=== PATIENT | male | born 1960 | race Caucasian/White ===

== ENCOUNTER → 2020-06-21 08:10 | Outpatient (CLI) | payer OTHER, SELFPAY ==
[2020-06-21 10:02] LABS: Alanine Aminotransferase 33 IU/L (<50); Albumin 4.5 g/dL (3.5-5.0); Albumin Globulin Ratio 1.5 (1.0-2.8); Alkaline Phosphatase 130 U/L (38-126); Aspartate Aminotransferase 33 IU/L (17-59); BUN Creatinine Ratio 7.3 (6-22); Bilirubin Total 1.2 mg/dL (0.2-1.3); Blood Urea Nitrogen 8 mg/dL (9-20); Calcium 9.8 mg/dL (8.4-10.2); Carbon Dioxide 27 mmol/L (22-32); Chloride 104 mmol/L (98-107); Cholesterol 198 mg/dL (140-199); Estimated Glomerular Filt Rate > 60.0 mL/min (>60); Globulin 3.1 g/dL (1.7-4.1); Glucose 109 mg/dL (70-100); HDL Cholesterol 52 mg/dL (40-60); HEMOLYSIS < 15 (0-50); LDL Cholesterol Calculated 89 mg/dL (<100); Potassium 4.6 mmol/L (3.4-5.1); Sodium 139 mmol/L (137-145); Total Protein 7.6 g/dL (6.3-8.2); Triglycerides 287 mg/dL (35-150)
== END ==
PROVIDERS: PCP Internal Medicine; Referring Provider Internal Medicine; Visit Provider Internal Medicine
DX: Z12.5 Encounter for screening for malignant neoplasm of prostate (principal); E78.2 Mixed hyperlipidemia; I10 Essential (primary) hypertension
CPT/HCPCS: 36415; 80053; 80061; G0103

== ENCOUNTER → 2021-03-17 13:18 | Outpatient (CLI) | payer OTHER, SELFPAY ==
[2021-03-17 14:01] LABS: COVID19 -Nasal RAPID Negative (Negative)
== END ==
PROVIDERS: PCP Internal Medicine; Visit Provider Surgery
DX: Z01.812 Encounter for preprocedural laboratory examination (principal); Z20.822 Contact with and (suspected) exposure to COVID-19
CPT/HCPCS: 87635; C9803

== ENCOUNTER 2021-03-18 10:38 | Day surgery (SDC) | payer OTHER, SELFPAY ==
[2021-03-13 07:32] VITALS: BMI 34.4
[2021-03-18] VITALS (22 sets, daily range): BP systolic 95–174; BP diastolic 57–94; PULSE 78–109; RESP 12–18; TEMP 36.5–37.5; O2SAT 91–97; BMI 33.6
--- NOTE | 2021-03-18 | PATH_ITS ---
[facility] Accession Number: [id number] . 01 Material submitted: . hernia - VENTRAL HERNIA SAC . 02 Diagnosis: Ventral Hernia Sac, Biopsy: Mature adipose tissue. Negative for atypia or malignancy. [facility] 03/24/2021 1150 Local . 02 Electronically signed: . Francia Martínez MD, Pathologist NPI- [id number] . 01 Gross description: . The specimen is received in formalin, labeled ventral hernia sac and consists of a 36.0 x 20.5 x 5.5 cm powell-yellow fragment of adipose tissue, which is sectioned to reveal powell-yellow lobulated cut surfaces. No masses or lesions are identified. Meteorology Teacher sections are submitted in cassettes A1-A3. (EA:[id number]) /V 03/20/2021 1423 Local . 02 Pathologist provided ICD-10: K43.9 . 02 CPT . 882702 Performed at: 01 [facility] [address] Formerly named [facility], [place], [place] [id number] MD Paco Douglass MD Phone: [phone] Performed at: 02 [facility] [address] [place], [place] [id number] MD Francia Martínez MD Phone: [phone]
[2021-03-18] MEDS: LACTATED RINGERS 1,000 ML 100 ML IV ×3 (11:00→14:46)
--- NOTE | 2021-03-18 11:52 | PM.PREOP ---
Pre-operative Note Interval Note History & Physical reviewed/Exam performed by Physician: Yes Changes to H&P: No
[2021-03-18] MEDS: CEFAZOLIN 2 GM/100 ML FROZ.PIGGY IV (12:10)
--- NOTE | 2021-03-18 12:37 | SUR.OPER ---
Supine on padded OR bed, head on pillow, arms secured on padded arm boards at <90 degrees abduction, legs uncrossed with pillow under knees, safety belt at thigh, tape over blanket over lower legs, gel pad under heels.
[2021-03-18] MEDS: BUPIVACAINE 0.25% (PF) VIAL 30 ML INJ (12:54)
[2021-03-18] MEDS: BUPIVACAINE LIPOSOME 266 MG/20 ML VIAL INJ (12:55)
--- NOTE | 2021-03-18 14:40 | PM.OP.1 ---
Operative Date/Time/Diagnoses Date of procedure: 03/18/21 Time of procedure: 14:41 Pre-op diagnosis: Ventral hernia Post-op diagnosis: same Procedure & Clinicians Procedure: Open repair of ventral hernia with mesh Same procedure as scheduled: Yes Indications: Symptomatic ventral hernia Surgeon: Gurwinder Buckley Click Yes if Unassisted: Yes Anesthesia Type: General Operative Notes Findings: Ventral hernia superior to the umbilicus 4 cm fascial defect containing incarcerated omentum. Specimen(s): other (Hernia sac) Estimated Blood Loss (mL): 500 Procedure in detail: Patient was brought to the operating room placed supine on the table. Bilateral lower extremity compression devices were applied. He was intubated with an endotracheal tube. He received Ancef prior to skin incision. He was prepped and draped in sterile fashion. Time-out was performed. It upper midline incision through the skin. The hernia was palpable just below the skin. Skin flaps were raised on each side in order to fully expose the hernia. The hernia sac was opened carefully. Within the hernia there was incarcerated omentum as well as viable small bowel content. I was unable to reduce the hernia at this point and so extended the fascial defect above and below in order to release the hernia. The omentum was divided using the electric cautery. There was persistent bleeding from the omentum and I switched to the LigaSure to divide the remainder of it. The estimated blood loss was approximately 400 mL. The abdomen was irrigated with several liters of sterile saline and hemostasis was observed.The fascial edges were freshed, skin flaps were extended laterally to expose the fascia. The fascia closed without tension using Ethibond suture in interupted figure of 8 fashion. A 10x 15 cm macroporous mesh was secured overlaying the fascia using ethibond. The subcutaneous tissue was reapproximated using vicryl. The skin was especially thinned out so it was trimed back and then closed in running faschion using 4-0 Monocryl. A drain was placed over the fascia closure exiting through the left side of the abdomen. Skin sealed with dermabond and steri strips. Emerged from anesthesia transfered to recovery room in stable condition. Complications: none Post-operative Condition: stable Disposition: observation
[2021-03-18] MEDS: ONDANSETRON 4 MG/2 ML INJ IV (14:41)
[2021-03-18] MEDS: ACETAMINOPHEN 325 MG TABLET 650 MG PO (18:57)
[2021-03-18] MEDS: IBUPROFEN 600 MG TABLET PO (18:57)
--- NOTE | 2021-03-18 20:57 | PC.NURSE ---
Pt arrived to room ay 1545, awake. Has denied discomfort this evening. IVF of LR @ 100cc/hr infusing into right arm.via pump w/o incidence. Abdominal binder in place over surgical dsg CDI. Pt assisted to BR w/o incidence. Miguel drain intact/patent. Call light w/in reach, pt calls appropriately for needs. Continue w/plan of care.
[2021-03-19] VITALS: BP 128/75; PULSE 108; RESP 16; TEMP 36.3; O2SAT 95
[2021-03-19 00:15] VITALS: O2SAT 95
[2021-03-19] MEDS: ACETAMINOPHEN 325 MG TABLET 650 MG PO ×2 (00:17→06:13)
[2021-03-19] MEDS: IBUPROFEN 600 MG TABLET PO ×2 (00:17→06:13)
[2021-03-19] MEDS: LACTATED RINGERS 1,000 ML 100 ML IV (01:10)
[2021-03-19 03:52] VITALS: BP 138/78; PULSE 86; RESP 16; TEMP 36.7; O2SAT 93
[2021-03-19 04:00] VITALS: O2SAT 93
[2021-03-19 08:00] VITALS: BP 148/78; PULSE 87; RESP 14; TEMP 36.1; O2SAT 94
[2021-03-19] MEDS: lisinopriL 10 MG TABLET PO (08:22)
[2021-03-19] MEDS: ATORVASTATIN 20 MG TABLET PO (08:22)
[2021-03-19] MEDS: AMLODIPINE 5 MG TABLET PO (08:22)
--- NOTE | 2021-03-19 09:52 | PC.NURSE ---
Patients dressing is cdi, with abdominal binder on. He denies pain and is up ambulating now. Patient is going to be discharged to home with RONALD drain. Ride will be here around 1130 and he has been heplocked.
--- NOTE | 2021-03-19 10:42 | CM.DANOTE ---
DCP; Case received, EMR reviewed and met with patient. Introduced self and role. Was able to obtain information from patient regarding his baseline activity status prior to hospitalization. DCP assessment completed with information currently available. Patient is a 60 year old male who admitted yesterday morning to the care of the surgical team. PCP: Dr. Green. Payer: confirmed: Fito GARCIA. Patient came to the hospital via private vehicle for a planned surgical procedure He had open repair of ventral hernia with mesh. Met with patient in his room. He was up in his chair, alert and oriented, pleasant. He resides here in [place] alone, and is employed at [employer]. He is independent at his baseline. P: Patient is being discharged home today with no needs. Family or friend will pick him up. Marce Nickerson RN/Metal Numerical Tool Programmer
== END 2021-03-19 10:49 | disposition home or self-care (01) ==
LOC: OR 10:42 → AC 15:52
PROVIDERS: PCP Internal Medicine; Referring Provider Surgery; Visit Provider Surgery
PROC: (CPT 49561; principal; 2021-03-18 11:45)
DX: K43.9 Ventral hernia without obstruction or gangrene (principal); E66.9 Obesity, unspecified; I10 Essential (primary) hypertension; E78.2 Mixed hyperlipidemia
CPT/HCPCS: 49561; 49568; C1781; C9290; J0690; J1100; J2250; J2405; J2704; J3010

== ENCOUNTER → 2023-01-13 07:27 | Outpatient (CLI) | payer OTHER, SELFPAY ==
[2021-03-18 16:14] VITALS: BMI 33.6
[2023-01-13 08:20] LABS: Alanine Aminotransferase 26 IU/L (<50); Albumin 4.5 g/dL (3.5-5.0); Albumin Globulin Ratio 1.4 (1.0-2.8); Alkaline Phosphatase 92 U/L (38-126); Aspartate Aminotransferase 29 IU/L (17-59); BUN Creatinine Ratio 23.6 (6-22); Bilirubin Total 0.9 mg/dL (0.2-1.3); Blood Urea Nitrogen 25 mg/dL (9-20); Calcium 9.3 mg/dL (8.4-10.2); Carbon Dioxide 30 mmol/L (22-32); Chloride 100 mmol/L (98-107); Cholesterol 203 mg/dL (140-199); Estimated Glomerular Filt Rate > 60 mL/min (>60); Globulin 3.3 g/dL (1.7-4.1); Glucose 96 mg/dL (80-110); HDL Cholesterol 50 mg/dL (40-60); HEMOLYSIS < 15 (0-50); LDL Cholesterol Calculated 120 mg/dL (<100); Potassium 4.5 mmol/L (3.4-5.1); Sodium 139 mmol/L (137-145); Total Protein 7.8 g/dL (6.3-8.2); Triglycerides 167 mg/dL (35-150)
[2023-01-13 08:52] LABS: Prostate Specific Antigen Scrn 1.23 ng/mL (0.1-4.0)
== END ==
PROVIDERS: PCP Internal Medicine; Referring Provider Internal Medicine; Visit Provider Internal Medicine
DX: E78.2 Mixed hyperlipidemia (principal); I10 Essential (primary) hypertension; Z12.5 Encounter for screening for malignant neoplasm of prostate
CPT/HCPCS: 36415; 80053; 80061; G0103

== ENCOUNTER 2023-04-22 08:37 | Day surgery (SDC) | payer OTHER, SELFPAY ==
[2021-03-18 16:14] VITALS: BMI 33.6
--- NOTE | 2023-04-22 | PATH_ITS ---
[facility] Accession Number: [id number] No. of containers..01 Tissue . 01 Material submitted: . colon - TRANSVERSE COLON POLYPS . 01 Diagnosis: Transverse Colon Polyps: Tubular adenomas. [facility] 04/29/2023 1330 Local . 01 Electronically signed: . Marco Nolasco MD, PhD, Pathologist NPI- [id number] . 01 Gross description: . TRANSVERSE COLON POLYPS: Received in formalin are 3 fragment(s) of powell, soft tissue measuring 0.6 x 0.5 x 0.2 cm to 1.0 x 0.4 x 0.4 cm submitted entirely in 1 cassette(s) /ELENO 04/28/2023 0056 Local . 01 Pathologist provided ICD-10: D12.3 . 01 CPT . 285779 Specimen Comment: A courtesy copy of this report has been sent to [phone] Performed at: 01 [facility] [address] [place] [address], [place], [place] [id number] MD Paco Douglass MD Phone: [phone]
[2023-04-22] MEDS: LACTATED RINGERS 1,000 ML 42 ML IV (08:54)
[2023-04-22 08:55] VITALS: BP 121/68; PULSE 60; RESP 16; TEMP 36.3; O2SAT 99; BMI 28.5
--- NOTE | 2023-04-22 09:45 | P.HP_ITS ---
History of Present Illness History of Present Illness Date Patient Seen: 04/22/23 Time Patient Seen: 09:45 Chief complaint: SDC Narrative: Cedric is a 62-year-old man who is here for a colonoscopy. He has never had 1 before. No family history of colon cancer. [facility] Medical History (Updated 04/22/23 @ 09:46 by Taiwo Mccullough MD) Anxiety (~2014) Essential hypertension (06/23/16) Family history of premature coronary artery disease (06/23/16) Fractures Gastroesophageal reflux disease without esophagitis (06/23/16) HTN (hypertension) Mixed hyperlipidemia (06/23/16) Non morbid obesity due to excess calories (06/23/16) Umbilical hernia Surgical History Anesthesia History of back surgery (~2009) Family History Father Myocardial infarction Mother Multiple sclerosis Cancer Social History household members: significant other and children Smoking Status: Former smoker alcohol intake: current Meds Home Medications and Allergies Home Medications Medication Instructions Recorded Confirmed Type atorvastatin 20 mg tablet 20 mg PO DAILY 04/29/20 04/22/23 History lisinopril 10 mg tablet 10 mg PO DAILY 04/29/20 04/22/23 History esomeprazole magnesium 20 mg 20 mg PO DAILY 12/07/22 04/22/23 History capsule,delayed release (Nexium) Allergies Allergy/AdvReac Type Severity Reaction Status Date / Time morphine [MORPHINE] Allergy Intermediate Hives Verified 04/22/23 08:52 Exam Vital Signs (past 8 hours): - 04/22/23 08:55 Temperature 97.4 F L Pulse Rate 60 Respiratory Rate 16 Blood Pressure 121/68 Pulse Oximetry 99 Oxygen Delivery Method Room Air Oxygen Delivery Method Room Air Const General: healthy appearing Assessment & Plan Assessment and plan (1) Colon cancer screening: Status: Acute Plan 62-year-old man who is here for a screening colonoscopy. We reviewed the risks and benefits and he would like to proceed.
--- NOTE | 2023-04-22 10:42 | PM.OP.COLON ---
Operative Date/Time/Diagnoses Date of procedure: 04/22/23 Time of procedure: 10:42 Pre-op diagnosis: Colon cancer screening Post-op diagnosis: same Procedure & Clinicians Study performed: Colonoscopy Same procedure as scheduled: Yes Surgeon: Taiwo Mccullough Procedure Notes Procedure in detail: Surgeon: Taiwo Mccullough MD Anesthesia: Lyudmila Tom DO Procedure: The patient was brought to the endoscopy suite, placed in left lateral decubitus position. The patient was connected to monitoring devices. A time-out was performed. Sedation was administered. Once the patient was adequately sedated, a digital rectal exam was performed and was normal. The scope was then inserted and advanced to the cecum where the appendiceal orifice was identified and photographed. The scope was then slowly withdrawn over greater than 6 minutes. The mucosa was thoroughly inspected. Two polyps were seen in the transverse colon each about 5 mm. Both were removed with a cold snare and sent together. The scope was retroflexed in the rectum. Internal hemorrhoids were seen. The scope was straightened and removed. The patient was awakened and brought to recovery. Scope withdrawal time: 8 minutes Sedation time: 13 minutes EBL: 2 mL Findings: 2 5-mm polyps in the transverse colon and internal hemorrhoids Post-procedure Disposition: PACU
[2023-04-22 10:43] VITALS: BP 92/48; PULSE 53; RESP 20; TEMP 36.2; O2SAT 99
[2023-04-22 10:48] VITALS: BP 87/47; PULSE 76; RESP 18; O2SAT 98
[2023-04-22 10:53] VITALS: BP 95/47; PULSE 65; RESP 20
[2023-04-22 10:58] VITALS: BP 97/54; BP 98/53; PULSE 63; PULSE 70; RESP 12; RESP 20; TEMP 36.3; O2SAT 97; O2SAT 99
== END 2023-04-22 11:14 | disposition home or self-care (01) ==
PROVIDERS: PCP Internal Medicine; Referring Provider Surgery; Visit Provider Surgery
PROC: 0DJD8ZZ Inspection of Lower Intestinal Tract, Via Natural or Artificial Opening Endoscopic (ICD-10-PCS; CPT 45378; principal; 2023-04-22 09:45)
DX: Z12.11 Encounter for screening for malignant neoplasm of colon (principal); K64.8 Other hemorrhoids; D12.3 Benign neoplasm of transverse colon
CPT/HCPCS: 45385; J2704

== ENCOUNTER → 2023-12-15 08:27 | Outpatient (CLI) | payer OTHER, SELFPAY ==
[2021-03-18 16:14] VITALS: BMI 33.6
--- NOTE | 2023-12-15 08:28 | DI.RAD.S_ITS ---
PROCEDURE: XR CHEST 2V INDICATIONS: Cough TECHNIQUE: 2 views of the chest were acquired. COMPARISON: [facility], , CHEST 2 VIEW, 03/05/2008, 8:47. FINDINGS: Surgical changes and devices: None. Lungs and pleura: Lungs are clear. No pleural effusions or pneumothorax. Mediastinum: Mediastinal contours are normal. Heart size is normal. Bones and chest wall: No suspicious bony abnormalities. Soft tissues appear unremarkable. IMPRESSION: No acute cardiopulmonary abnormality is seen. Dictated by: Ervin Bah M.D. on 12/15/2023 at 9:09 Approved by: Ervin Bah M.D. on 12/15/2023 at 9:09
== END ==
PROVIDERS: PCP Internal Medicine; Referring Provider Nurse Practitioner Family; Visit Provider Nurse Practitioner Family
DX: R05.9 Cough, unspecified (principal)
CPT/HCPCS: 71046